=== PATIENT | male | born 1980 | race Caucasian/White ===

== ENCOUNTER 2019-01-13 19:32 | Emergency (ER) | payer OTHER ==
[2019-01-13 20:03] VITALS: BP 131/110
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
--- NOTE | 2019-01-13 22:37 | XRay Report ---
FINAL REPORT EXAM: XR SPINE LUMBOSACRAL 2-3V HISTORY: low back pain TECHNIQUE: 2 views of the lumbar spine PRIORS: None. FINDINGS: The lumbar vertebral bodies are normal in height. Vertebral alignment is normal. There is mild endpla te osteophyte formation from T11-12 to L3-4. Otherwise, the disc spaces appear well-preserved. The so ft tissues are unremarkable. IMPRESSION: Mild multilevel degenerative disc disease
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
[2019-01-13] MEDS ORDERED: NORCO 5/325 PO STA (23:05)
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
== END 2019-01-13 23:54 | disposition home or self-care (01) ==
LOC: ED 19:32
DX: S16.1XXA Strain of muscle, fascia and tendon at neck level, initial encounter (principal); S09.90XA Unspecified injury of head, initial encounter; M25.512 Pain in left shoulder; I10 Essential (primary) hypertension; V49.59XA Passenger injured in collision with other motor vehicles in traffic accident, initial encounter; Y93.89 Activity, other specified; Y92.488 Other paved roadways as the place of occurrence of the external cause; Y99.8 Other external cause status
CPT/HCPCS: 70450; 71250; 72100; 72125; 99284